=== PATIENT | female | born 1995 | race Hispanic/Latino ===

== ENCOUNTER 2020-06-29 12:21 | Outpatient (CLI) | payer BC ==
--- NOTE | 2020-06-29 16:41 | RAD ---
LUMBAR SPINE THREE VIEWS: History: Low back pain, sciatica. FINDINGS: Lumbar vertebrae maintain normal height and alignment. The disc spaces are preserved. No evidence of spondylolisthesis or spondylosis. IMPRESSION: Unremarkable lumbar spine. POS: [facility]
== END 2020-06-29 12:22 | disposition home or self-care (01) ==
LOC: NAV RAD 12:21
PROVIDERS: ATTEND Family Medicine
DX: M54.41 Lumbago with sciatica, right side (principal)
CPT/HCPCS: 72100

== ENCOUNTER 2023-04-23 14:23 | Outpatient (CLI) | payer BC | END 2023-04-23 14:24 | disposition home or self-care (01) | LOC: NAV RAD 14:23 | PROVIDERS: ATTEND Nurse Practitioner Family | DX: S93.401A Sprain of unspecified ligament of right ankle, initial encounter (principal) ==